=== PATIENT | female | born 2000 | race Caucasian/White ===

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

== ENCOUNTER 2023-06-12 13:15 | Outpatient (CLI) | payer BC | END 2023-06-12 13:16 | disposition home or self-care (01) | LOC: SCSRAD 13:15 | PROVIDERS: ATTEND Physician Assistant | DX: S59.902A Unspecified injury of left elbow, initial encounter (principal) ==